=== PATIENT | male | born 1990 | race Two or more races ===

== ENCOUNTER 2016-07-15 20:59 | Emergency (ER) | payer SELFPAY ==
[~2016-07-15] VITALS: Ht 182.9 cm; Wt 127.0 kg
[2016-07-15] MEDS ORDERED: IBUPROFEN 400 MG TABLET. PO ONE (22:00)
--- NOTE | 2016-07-15 22:11 | PHYS DOC ---
Past Medical History Past Medical History: No Pertinent History Past Surgical History: No Surgical History Alcohol Use: None Drug Use: None Adult General Chief Complaint Chief Complaint: CHEST PAIN HPI HPI Patient is a 25 year old male who presents with left anterior chest pain that is achy, constant, started yesterday evening after drinking an energy drink. His pain is worse with range of motion of his left shoulder or thorax. States he has never had symptoms like this before. He has had this energy drink prior without symptoms. He denies dyspnea, nausea or vomiting, palpitations, diaphoresis, fever or chills, exertional symptoms, orthopnea, leg pain or swelling, hemoptysis. He denies trauma or rash. Review of Systems Review of Systems Constitutional: Denies fever or chills [] Eyes: Denies change in visual acuity, redness, or eye pain [] HENT: Denies nasal congestion or sore throat [] Respiratory: Denies cough or shortness of breath [] Cardiovascular: No additional information not addressed in HPI [] GI: Denies abdominal pain, nausea, vomiting, bloody stools or diarrhea [] : Denies dysuria or hematuria [] Musculoskeletal: Denies back pain or joint pain [] Integument: Denies rash or skin lesions [] Neurologic: Denies headache, focal weakness or sensory changes [] Endocrine: Denies polyuria or polydipsia [] Family History Family History No family history of young coronary artery disease or sudden Current Medications Current Medications Current Medications Medications (Trade) Dose Ordered Sig/Sara Start Time Stop Time Status Last Admin Dose Admin Ibuprofen (Motrin) 400 mg 1X ONCE 07/15/16 22:00 07/15/16 22:01 DC 07/15/16 22:00 400 MG Allergies Allergies Allergies Coded Allergies Type Severity Reaction Last Updated Verified No Known Drug Allergies 10/20/14 No Physical Exam Physical Exam Constitutional: Well developed, well nourished, no acute distress, non-toxic appearance. [] HENT: Normocephalic, atraumatic, bilateral external ears normal, oropharynx moist, nose normal. [] Eyes: PERRLA, EOMI. [] Neck: Normal range of motion, supple. [] Cardiovascular:Heart rate regular rhythm [] Lungs & Thorax: Bilateral breath sounds clear to auscultation [] Abdomen: Bowel sounds normal, soft, no tenderness. [] Skin: Warm, dry, no erythema, no rash. [] Back: No tenderness, no CVA tenderness. [] Extremities: No tenderness, ROM intact, no edema. [] Neurologic: Alert and oriented X 3, normal motor function, normal sensory function, no focal deficits noted. [] Psychologic: Affect normal, judgement normal, mood normal. [] Current Patient Data Vital Signs Vital Signs Date Time Temp Pulse Resp B/P Pulse Ox O2 Delivery O2 Flow Rate FiO2 07/15/16 22:37 86 18 128/86 100 Room Air 07/15/16 21:17 98.5 98.5 Lab Values Laboratory Tests Test 07/15/16 21:54 POC Troponin I 0.01ng/ml (<0.08) EKG EKG EKG as interpreted by me as normal sinus rhythm, rate 79, no ST-T changes, normal intervals, no ectopy Course & Med Decision Making Course & Med Decision Making Pertinent Labs and Imaging studies reviewed. (See chart for details) Workup is unremarkable. Discussed symptomatic care. Encouraged him to follow-up with his primary care doctor for high blood pressure here. Return precautions given. He understands and agrees with plan. Dragon Disclaimer Dragon Disclaimer This electronic medical record was generated, in whole or in part, using a voice recognition dictation system. Departure Departure Impression: Primary Impression: Chest pain Disposition: HOME, SELF-CARE Condition: STABLE Referrals: NO PCP (PCP) Patient Instructions: Chest Pain (Nonspecific), [id number] Additional Instructions: Take Tylenol or ibuprofen as needed for pain. Follow-up with your primary care doctor. Return for any concerns. Problem Qualifiers Primary Impression: Chest pain Chest pain type: unspecified Qualified Code: R07.9 - Chest pain, unspecified Óscar NOEL MD Jul 15, 2016 22:11
[2016-07-15 22:37] VITALS: BP 128/86
--- NOTE | 2016-07-16 06:53 | EKG ---
[facility] [address] [place] [id number] Test Date: 2016-07-15 Test Time: 21:12:27 Pat Name: SASCHA APONTE Department: Room: Gender: M Bsw: : 1990 Requested By: Óscar NOEL Order Number: [id number] Reading MD: Measurements Intervals [place] Rate: 79 P: 24 LA: 146 QRS: 90 QRSD: 88 T: 44 QT: 346 QTc: 398 Interpretive Statements SINUS RHYTHM QRS(T) CONTOUR ABNORMALITY CONSIDER INFERIOR MYOCARDIAL DAMAGE RI6.01 Unconfirmed report No previous ECG available for comparison
== END 2016-07-15 23:23 | disposition home or self-care (01) ==
LOC: ER 20:59
DX: R07.89 Other chest pain (principal)
CPT/HCPCS: 84484; 93005; 99283-25

== ENCOUNTER 2017-09-11 19:20 | Emergency (ER) | payer SELFPAY ==
[2017-09-12 09:45] LABS: NEGATIVE OBC STREP NEG; POSITIVE OBC STREP POS
== END 2017-09-11 20:27 | disposition home or self-care (01) ==
LOC: ER 19:20
DX: L04.0 Acute lymphadenitis of face, head and neck (principal)
CPT/HCPCS: 87070; 87880; 99283